=== PATIENT | female | born 1950 | race Caucasian/White ===

== ENCOUNTER 2020-03-23 19:31 | Emergency (ER) | payer MEDICARE, OTHER ==
[2020-03-23 19:38] VITALS: BP 145/73
--- NOTE | 2020-03-23 20:47 | ED Physician Documentation ---
PD HPI HEAD INJURY - Stated complaint Stated Complaint: FALL - HEAD LAC - Chief complaint Chief Complaint: Trauma Hd/Nk - History obtained from History obtained from: Patient (69-year-old woman who is up-to-date on tetanus slipped and fell landing on her face. She has a cut above and lateral to the right eyebrow with a mild headache. No loss of consciousness. No other injuries save for a bruise on her arm.) Review of Systems Constitutional: reports: Reviewed and negative Ears: reports: Reviewed and negative Nose: reports: Reviewed and negative Throat: reports: Reviewed and negative PD PAST MEDICAL HISTORY - Past Medical History Past Medical History: Yes Cardiovascular: [place], Other Respiratory: None Neuro: Head injury, Other Endocrine/Autoimmune: None [employer]: None : None HEENT: None Psych: None Musculoskeletal: Scoliosis Derm: None - Past Surgical History Past Surgical History: Yes General: Cholecystectomy Ortho: ACL reconstruction Cardiovascular: Coronary stent - Allergies Allergies/Adverse Reactions: Allergies Allergy/AdvReac Type Severity Reaction Status Date / Time No Known Drug Allergies Allergy Verified 03/23/20 19:34 - Social History Does the pt smoke?: No Smoking Status: Never smoker Does the pt drink ETOH?: Yes Does the pt have substance abuse?: No - Immunizations Immunizations are current?: Yes - POLST Patient has POLST: No PD ED PE NORMAL - Vitals Vital signs reviewed: Yes - General General: Alert and oriented X 3, No acute distress - HEENT HEENT: PERRL, EOMI, Other (2cm shallow lac above /lat right eyebrow, no bony TTP) - Neck Neck: Supple, no meningeal sign, No bony TTP - Extremities Extremities: Other (There is a palm sized bruise on the right deltoid without tenderness or limited range of motion.) - Neuro Neuro: Alert and oriented X 3, No motor deficit, No sensory deficit, Normal speech Results - Vitals Vitals: Vital Signs - 24 hr 03/23/20 19:34 Temperature 36.5 C Heart Rate 69 Respiratory 16 Rate Blood Pressure 145/73 H O2 Saturation 99 Oxygen O2 Source Room air - Rads (name of study) CT Head Radiology: EMP read contemporaneously (NAD) Procedures - Laceration (location) face Length in cm: 1.5 Wound type: Linear, Superficial Wound Preparation: Irrigated copiously NS Skin layer closure: Dermabond Complexity: Simple PD MEDICAL DECISION MAKING - ED course ED course: 69-year-old with ground-level fall, laceration above the right eyebrow which was cleansed and Dermabonded. Had a mild headache and given age a CT was done without pertinent positive findings. Departure - Departure Disposition: 01 Home, Self Care Clinical Impression: Head injury Qualifiers: Encounter type: initial encounter Qualified Code(s): S09.90XA - Unspecified injury of head, initial encounter Facial laceration Qualifiers: Encounter type: initial encounter Qualified Code(s): S01.81XA - Laceration without foreign body of other part of head, initial encounter Condition: Good Record reviewed to determine appropriate education?: Yes Instructions: ED Head Injury Closed, ED Laceration Facial Skin Glue Discharge Date/Time: 03/23/20 21:22
--- NOTE | 2020-03-23 21:19 | CT Report ---
PROCEDURE: HEAD WO INDICATIONS: head inj TECHNIQUE: Noncontrast 4.5 mm thick angled axial sections acquired from the foramen magnum to the vertex. For r adiation dose reduction, the following was used: automated exposure control, adjustment of mA and/or kV according to patient size. COMPARISON: None. FINDINGS: Image quality: Excellent. CSF spaces: Basal cisterns are patent. No extra-axial fluid collections. Ventricles are normal in size and shape. Brain: No midline shift. No intracranial masses or hemorrhage. Gonzales-white matter interface is norm al. There is symmetric calcification seen of the basal ganglia. Mild, age-appropriate chronic small vessel ischemic change and brain parenchymal volume loss can be seen. Skull and face: Calvarium and visualized facial bones are intact, without suspicious lesions. 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 Sinuses: Visualized sinuses and mastoids are clear. IMPRESSION: No intracranial hemorrhage is seen. No significant intracranial abnormality is seen. Age-appropriate brain parenchymal volume loss and chronic small vessel ischemic change can be seen. Reviewed by: Reagan Muñoz MD on 03/23/2020 8:17 PM ALONDRA Approved by: Reagan Muñoz MD on 03/23/2020 8:17 PM AKDT Station ID: [id number]
== END 2020-03-23 21:22 | disposition home or self-care (01) ==
LOC: ED 19:31
DX: S09.90XA Unspecified injury of head, initial encounter (principal); S01.111A Laceration without foreign body of right eyelid and periocular area, initial encounter; W01.0XXA Fall on same level from slipping, tripping and stumbling without subsequent striking against object, initial encounter
CPT/HCPCS: 12011; 70450; 99284